=== PATIENT | female | born 1955 | race Caucasian/White ===

== ENCOUNTER 2018-07-06 09:13 | Day surgery (SDC) | payer MEDICARE, BC ==
[~2018-07-06] VITALS: Ht 162.6 cm; Wt 75.0 kg
[2018-07-06 09:40] VITALS: BP 140/75
[2018-07-06] MEDS ORDERED: fentaNYL/PF 50MCG/1 ML 2ML syringe ONE (09:43)
[2018-07-06] MEDS ORDERED: MIDAZolam 5mg/5ml vial ONE (09:43)
[2018-07-06] MEDS ORDERED: LIDOcaine Viscous 15ml cup ONE (09:44)
[2018-07-06] MEDS ORDERED: SYN0.112T PO (09:49)
[2018-07-06] MEDS ORDERED: OXYC-149 PO (09:49)
[2018-07-06] MEDS ORDERED: METH5TAB2 PO (09:50)
[2018-07-06] MEDS ORDERED: METF500T7 PO (09:51)
[2018-07-06] MEDS ORDERED: INSU100V12 SQ (09:52)
[2018-07-06] MEDS ORDERED: NAPR-1154 PO (09:52)
[2018-07-06] MEDS ORDERED: METO-292 PO (09:53)
[2018-07-06] MEDS ORDERED: GLYB5TAB7 PO (09:53)
[2018-07-06] MEDS ORDERED: PRO100T PO (09:54)
[2018-07-06] MEDS ORDERED: MILN50TA PO (09:54)
[2018-07-06] MEDS ORDERED: LISI10TA4 PO (09:54)
[2018-07-06 10:09] VITALS: BP 123/73
[2018-07-06 10:19] VITALS: BP 111/71
[2018-07-06 10:24] VITALS: BP 138/64
[2018-07-06 10:29] VITALS: BP 115/73
[2018-07-06 10:39] VITALS: BP 112/66
== END 2018-07-06 10:50 | disposition home or self-care (01) ==
LOC: GI LAB 09:13
PROVIDERS: ATTEND Internal Medicine Gastroenterology
DX: K44.9 Diaphragmatic hernia without obstruction or gangrene (principal); K29.50 Unspecified chronic gastritis without bleeding; K25.9 Gastric ulcer, unspecified as acute or chronic, without hemorrhage or perforation
CPT/HCPCS: 43239; 43450; G0500; J2250; J3010; J7030; 88305; 88342; 99152; A4620